=== PATIENT | female | born 1960 | race Caucasian/White ===

== ENCOUNTER 2017-02-17 07:01 | Day surgery (SDC) | payer BC ==
[~2017-02-17] VITALS: Ht 167.6 cm; Wt 104.8 kg
[2017-02-17 08:04] VITALS: Ht 167.6 cm; Wt 104.8 kg
[2017-02-17 08:24] VITALS: BP 186/89; PULSE 83; RESP 26
[2017-02-17] MEDS ORDERED: PROPOFOL 60 ML ONE (08:41)
[2017-02-17] MEDS ORDERED: LIDOCAINE 2% (SDV) 5 ML INJ ONE (08:41)
--- NOTE | 2017-02-17 09:12 | OPPN ---
Date/Time of Note Date/Time of Note DATE: 02/17/17 TIME: 09:10 Operative Report Preoperative Diagnosis Screening Upper abdominal pain Postoperative Diagnosis Hiatal hernia Gastroesophageal reflux disease Gastritis with erosions Operation/Procedure Performed Esophagogastroduodenoscopy and biopsy Colonoscopy and biopsy Provider: ARCHANA ANGEL MD Anesthesia Type: MAC Estimated blood loss: none Transfusion Required: no Specimens Gastric biopsy Sigmoid colon biopsy Grafts/Implants: none Complications: no ARCHANA ANGEL MD Feb 17, 2017 09:12
[2017-02-17 09:53] VITALS: BP 162/87; PULSE 65; RESP 14
--- NOTE | 2017-02-17 10:28 | GILP ---
DATE OF PROCEDURE: 02/17/2017 PROCEDURE PERFORMED: 1. Esophagogastroduodenoscopy and biopsy. 2. Colonoscopy and biopsy. SURGEON: Izaiah Gambino MD. PREOPERATIVE DIAGNOSES: 1. Abdominal pain. 2. Screening colonoscopy. POSTOPERATIVE DIAGNOSES: 1. Hiatal hernia. 2. Gastroesophageal reflux disease. 3. Gastritis with erosions. 4. Gastric mucosal biopsies were taken for Helicobacter pylori test. 5. Colonoscopy all the way to the cecum. 6. Nonspecific colitis in the sigmoid colon and biopsies were taken for histopathology. 7. Internal hemorrhoids. INDICATION: Ms. Geno Talbert is a 56-year-old female patient who had upper abdominal pain not responding to therapy. She also needed a screening colonoscopy. The procedures and possible complications were well explained to the patient. The patient understood and consented to the procedures. DESCRIPTION OF PROCEDURE: Under influence of anesthesia, the gastroscope was carefully introduced into the esophagus, and under direct vision, it was advanced to the stomach, into the pylorus, into the duodenal bulb, and descending duodenum. FINDINGS: Esophagus: The patient had a hiatal hernia and gastroesophageal reflux disease. Stomach: She had gastritis with erosions. Gastric mucosal biopsies were taken for H pylori test. Duodenum was normal. The colonoscope was carefully introduced in the rectum, and under direct vision, it was advanced all the way to the cecum. FINDINGS: The patient had nonspecific colitis in the sigmoid colon and biopsies were taken for histopathology. She was noted to have internal hemorrhoids. No colon neoplasm was identified. The patient tolerated the procedures very well. There was no complication from the procedures. At the end of procedure, she was awake with stable vital signs and she was discharged home to the care of her family. IMPRESSION: Please see postop diagnoses. PLAN: 1. Nexium 24 hours p.o. in the morning. 2. Await histopathology reports. 3. Next screening colonoscopy in 10 years. Dictated By: MD DOUGLAS Gatica/jarod/radha /Document#: [id number]
== END 2017-02-17 11:20 | disposition home or self-care (01) ==
LOC: GIL 07:01
PROVIDERS: ATTEND Internal Medicine Gastroenterology
DX: R19.4 Change in bowel habit (principal); K44.9 Diaphragmatic hernia without obstruction or gangrene; K21.9 Gastro-esophageal reflux disease without esophagitis; K64.8 Other hemorrhoids; K29.60 Other gastritis without bleeding; I10 Essential (primary) hypertension; E78.5 Hyperlipidemia, unspecified; E66.01 Morbid (severe) obesity due to excess calories; Z68.37 Body mass index [BMI] 37.0-37.9, adult
CPT/HCPCS: 43239; 45380; 87081; 88305; Z7610